=== PATIENT | male | born 1995 | race Caucasian/White ===

== ENCOUNTER 2023-06-11 09:30 | Outpatient (CLI) | payer OTHER ==
--- NOTE | 2023-06-11 15:08 | MRI Report ---
PROCEDURE: WRIST WO - LT INDICATIONS: WRIST PAIN TECHNIQUE: Noncontrast coronal proton density fast spin echo and T2 fast spin echo with fat saturation; coronal 3-D gradient echo, axial T1 spin echo and T2 fast spin echo with fat saturation, sagittal T1 spin ech o through the wrist. COMPARISON: None. FINDINGS: Image quality: Excellent. Bones and cartilage: The carpal bones are normally aligned. There is marrow edema involving lunate w ith linear hypointense signal extending to radial aspect of lunate within the area of edema. No corti sun disruption is seen. No other area of abnormal marrow signal. Articulating cartilages are intact. Carpal ligaments: The scapholunate and lunotriquetral ligaments appear intact. In the absence of in tra-articular contrast, the extrinsic carpal ligaments are not well identified. On sagittal images, the pisohamate ligament appears intact. Triangular fibrocartilage complex: The triangular fibrocartilage appears intact. The adjacent menis sun homolog appears normal in the absence of intra-articular contrast. The extensor carpi ulnaris te ndon is normal in location and morphology. Tendons and soft tissues: The carpal tunnel structures appear normal, including the median nerve. T he ulnar nerve appears normal within Guyon's canal. All six extensor tendon compartments demonstrate normal morphology, without pathologic tendon sheath fluid. No soft tissue ganglion cysts. IMPRESSION: 1. 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 2. No other area of marrow signal abnormality. 3. Scapholunate and lunotriquetral ligaments are intact. Irregular fibrocartilage complex is intact. 4. Extensor and flexor tendons are within normal limits. Reviewed by: Patrick Shine MD on 06/11/2023 3:07 PM PDT Approved by: Patrick Shine MD on 06/11/2023 3:07 PM PDT Station ID: [id number]
== END 2023-06-11 09:31 | disposition home or self-care (01) ==
LOC: DI 09:30
PROVIDERS: ATTEND Preventive Medicine Aerospace Medicine
DX: M25.532 Pain in left wrist (principal)

== ENCOUNTER 2024-08-09 08:33 | Emergency (ER) | payer OTHER ==
--- NOTE | 2024-08-09 08:43 | ED Physician Documentation ---
PD HPI FEVER - Stated complaint Stated Complaint: ACHES,FEVER,THROAT SWOLLEN - History obtained from History obtained from: Patient - Additional information Additional information: Otherwise healthy 29-year-old gentleman who is active duty in the [employer] has been sick for 2 days with cough, congestion, sore throat, body aches, fevers and sweats. PD PAST MEDICAL HISTORY - Past Medical History Past Medical History: No - Allergies Allergies/Adverse Reactions: Allergies Allergy/AdvReac Type Severity Reaction Status Date / Time latex Allergy Rash Verified 08/09/24 08:47 PD ED PE NORMAL - Vitals Vital signs reviewed: Yes - General General: Alert and oriented X 3, No acute distress - HEENT HEENT: Other (Tonsils are surgically absent, oropharynx is visibly normal.) - Neck Neck: Supple, no meningeal sign, No bony TTP, No adenopathy - Cardiac Cardiac: RRR, No murmur - Respiratory Respiratory: No respiratory distress, Clear bilaterally - Abdomen Abdomen: Non tender - Derm Derm: No rash - Neuro Neuro: Alert and oriented X 3 Results - Vitals Vitals: Vital Signs - 24 hr 08/09/24 08/09/24 08:39 09:27 Temperature 37.6 C 37.5 C Heart Rate 108 H 103 H Respiratory 20 22 Rate Blood Pressure 144/83 H 125/77 O2 Saturation 100 100 Oxygen O2 Source Room air - Labs Labs: Laboratory Tests 08/09/24 08/09/24 08:50 08:50 Nasal Adenovirus (PCR) NOT DETECTED Nasal B. parapertussis DNA (PCR) NOT DETECTED Nasal Coronavir 229E PCR NOT DETECTED Nasal Coronavir HKU1 PCR NOT DETECTED Nasal Coronavir NL63 PCR NOT DETECTED Nasal Coronavir OC43 PCR NOT DETECTED Nasal Enterovir/Rhinovir PCR NOT DETECTED Nasal Influenza B PCR NOT DETECTED Nasal Influenza A PCR NOT DETECTED Nasal Parainfluen 1 PCR NOT DETECTED Nasal Parainfluen 2 PCR NOT DETECTED Nasal Parainfluen 3 PCR NOT DETECTED Nasal Parainfluen 4 PCR NOT DETECTED Nasal RSV (PCR) NOT DETECTED Nasal B.pertussis DNA PCR NOT DETECTED Nasal C.pneumoniae (PCR) NOT DETECTED Corbin Human Metapneumo PCR NOT DETECTED Nasal M.pneumoniae (PCR) NOT DETECTED Nasal SARS-CoV-2 (PCR) NOT DETECTED Group A Strep Rapid Negative PD Medical Decision Making - ED course ED course: 29-year-old gentleman with what sounds like a viral syndrome, potentially COVID. No home test [employer]. Strep is a possibility but less likely. He was administered dexamethasone here for the throat inflammation. Rapid strep test was negative as was his respiratory panel. Encouraged rest, home hydration and NSAIDs and close return precautions but does not appear to have a serious bacterial illness at this point, does sound very viral. Departure - Departure Disposition: 01 Home, Self Care Clinical Impression: Viral syndrome Condition: Good Record reviewed to determine appropriate education?: Yes Instructions: ED Viral Syndrome Comments: Your strep test is negative, COVID testing is pending on discharge and will call you if positive. This sounds like either COVID or some other virus though. You are young and healthy so he will be okay in short order but need to rest for a few days. Take Tylenol and/or ibuprofen as needed for aches and pains and throat pain. Drink plenty of fluids and get plenty of rest. Return for new or worsening symptoms. Forms: Activity restrictions
[2024-08-09 08:55] VITALS: O2SAT 100
[2024-08-09] MEDS: DEXAMETHASONE 10 MG/ML VIAL PO STA (09:08)
[2024-08-09] MEDS: CHERRY SYRUP 10 ML UDC PO ONE (09:08)
[2024-08-09 09:21] LABS: RAPID STREP SCREEN Negative (Negative)
[2024-08-09 09:37] VITALS: BP 125/77
[2024-08-09 10:11] LABS: B. PARAPERTUSSIS- RESP PCR PAN NOT DETECTED; B. PERTUSSIS- RESP PCR PANEL NOT DETECTED; C. PNEUMONIAE- RESP PCR PANEL NOT DETECTED; CORONAVIRUS 229E-RESP PCR NOT DETECTED; CORONAVIRUS HKU1-RESP PCR NOT DETECTED; CORONAVIRUS NL63-RESP PCR NOT DETECTED; CORONAVIRUS OC43-RESP PCR NOT DETECTED; HUMAN METAPNEUMOVIRUS NOT DETECTED; INFLUENZA A- RESP PCR PANEL NOT DETECTED; INFLUENZA B - RESP PCR PANEL NOT DETECTED; M. PNEUMONIAE- RESP PCR PANEL NOT DETECTED; PARAINFLUENZA VIRUS 1 NOT DETECTED; PARAINFLUENZA VIRUS 2 NOT DETECTED; PARAINFLUENZA VIRUS 3 NOT DETECTED; PARAINFLUENZA VIRUS 4 NOT DETECTED; RHINOVIRUS/ENTEROVIRUS NOT DETECTED; RSV- RESP PCR PANEL NOT DETECTED; SARS-CoV-2 -RESP PCR PANEL NOT DETECTED
== END 2024-08-09 09:27 | disposition home or self-care (01) ==
LOC: ED 08:33
DX: B34.9 Viral infection, unspecified (principal)
CPT/HCPCS: 87070; 87430; 87633; 99283; A9270